=== PATIENT | male | born 1965 | race Caucasian/White ===

== ENCOUNTER 2025-02-11 19:48 | Emergency (ER) | payer MEDICAID ==
[~2025-02-11] VITALS: Ht 172.7 cm; Wt 78.0 kg
[2025-02-11 19:59] VITALS: O2SAT 99
[2025-02-11] MEDS: NITROGLYCERIN 0.4MG TABLET SL SL PRN (23:02)
[2025-02-11] MEDS: ASPIRIN 81MG TABLET PO ONE (23:02)
[2025-02-11 23:04] LABS: EOSINOPHILS % 2.2 % (0.0-5.0); HEMATOCRIT. 39.3 % (42.0-52.0); HEMOGLOBIN. 13.2 g/dL (14.0-18.0); MEAN CORPUSCULAR HEMOGLOBIN 32.6 pg (28.0-32.0); MEAN CORPUSCULAR HGB CONC 33.6 g/dL (31.0-37.0); MEAN CORPUSCULAR VOLUME 97.1 fL (80.0-94.0); MEAN PLATELET VOLUME 7.7 fl (7.4-10.4); MONOCYTES % 8.9 % (2.0-8.0); NEUTROPHILS % 64.9 % (40.0-76.0); PLATELET 260 x1000/uL (130-400); RED BLOOD CELL COUNT 4.05 mill/uL (4.7-6.1); RED CELL DISTRIBUTION WIDTH 15.2 % (11.6-14.6); WHITE BLOOD COUNT 13.4 x1000/uL (4.5-11.0)
[2025-02-11 23:15] LABS: CARBON DIOXIDE 27 mEq/L (21-32); CHLORIDE 111 mEq/L (98-107); D-DIMER < 0.19 mg/L FEU (<0.50); INR 1.1; PARTIAL THROMBOPLASTIN TIME 30.5 sec (23.4-31.0); POTASSIUM 3.7 mEq/L (3.5-5.1); PROTHROMBIN TIME 11.3 sec (9.6-11.0); SODIUM 144 mEq/L (136-145)
[2025-02-11 23:16] LABS: CALCIUM 9.3 mg/dL (8.7-10.4)
[2025-02-11 23:20] LABS: CREATININE 0.8 mg/dL (0.6-1.3)
[2025-02-11 23:21] LABS: ETHANOL BLOOD < 10 mg/dL (<10); GLUCOSE 124 mg/dL (70-105); UREA NITROGEN BLOOD 21 mg/dL (9-23)
[2025-02-11 23:22] LABS: ALANINE AMINOTRANSFERASE 53 IU/L (10-49); ASPARTATE AMINOTRANSFERASE 127 IU/L (<34)
[2025-02-11 23:23] LABS: ALBUMIN 4.1 g/dL (3.2-4.8); BILIRUBIN DIRECT 0.1 mg/dL (<=3.0); BILIRUBIN TOTAL 0.5 mg/dL (0.1-1.0); PROTEIN TOTAL 7.8 g/dL (6.0-8.3); TROPONIN I HIGH SENSITIVITY 5 ng/L (3.0-53)
[2025-02-12 06:24] VITALS: TEMP 37.2
[2025-02-12 06:31] VITALS: BP 122/68; PULSE 62; RESP 12
== END 2025-02-12 08:04 | disposition left against medical advice (07) ==
LOC: ER 19:48
DX: R06.02 Shortness of breath (principal); R06.09 Other forms of dyspnea; F20.9 Schizophrenia, unspecified; F31.9 Bipolar disorder, unspecified; I10 Essential (primary) hypertension; J44.89 Other specified chronic obstructive pulmonary disease
CPT/HCPCS: 80076; 80048; 80320; 83880; 85025; 85379; 85610; 85730; 84484; 36415; 71045; 93005; 99285; Z7610; G0480

== ENCOUNTER 2025-05-19 17:21 | Emergency (ER) | payer MEDICAID ==
[~2025-05-19] VITALS: Ht 177.8 cm; Wt 80.0 kg
[2025-05-19 17:26] VITALS: BP 130/85; PULSE 92; RESP 16; TEMP 37; O2SAT 98
[2025-05-19] MEDS ORDERED: ACETAMINOPHEN 325MG TABLET PO ONE (18:30)
[2025-05-19] MEDS ORDERED: ACET-3800 MT (18:33)
== END 2025-05-19 19:46 | disposition home or self-care (01) ==
LOC: ER 17:21
DX: M79.671 Pain in right foot (principal); M79.672 Pain in left foot; I10 Essential (primary) hypertension; F20.9 Schizophrenia, unspecified; F41.9 Anxiety disorder, unspecified; F31.9 Bipolar disorder, unspecified; J44.9 Chronic obstructive pulmonary disease, unspecified; Z79.899 Other long term (current) drug therapy
CPT/HCPCS: 99283

== ENCOUNTER 2025-06-30 12:57 | Emergency (ER) | payer MEDICAID ==
[~2025-06-30] VITALS: Ht 172.7 cm; Wt 77.0 kg
[~2025-06-30 12:57] MED LIST: ACET-3800 MT
[2025-06-30 13:03] VITALS: BP 122/65; PULSE 79; RESP 18; TEMP 36.9; O2SAT 98
[2025-06-30 15:02] LABS: BASOPHILS % 0.3 % (0.0-2.0); EOSINOPHILS % 3.0 % (0.0-5.0); HEMATOCRIT. 39.1 % (42.0-52.0); HEMOGLOBIN. 12.8 g/dL (14.0-18.0); LYMPHOCYTES % 33.8 % (20.0-50.0); MEAN PLATELET VOLUME 8.2 fl (7.4-10.4); MONOCYTES % 10.0 % (2.0-8.0); NEUTROPHILS % 52.9 % (40.0-76.0); PLATELET 205 x1000/uL (130-400); RED BLOOD CELL COUNT 4.00 mill/uL (4.7-6.1); RED CELL DISTRIBUTION WIDTH 14.8 % (11.6-14.6)
[2025-06-30 15:12] LABS: INR 1.0
[2025-06-30] MEDS: ASPIRIN 81MG TABLET PO ONE (15:16)
[2025-06-30 15:17] LABS: CREATININE 0.7 mg/dL (0.6-1.3); UREA NITROGEN BLOOD 19 mg/dL (9-23)
[2025-06-30 15:19] LABS: TROPONIN I HIGH SENSITIVITY < 4 ng/L (3.0-53)
== END 2025-06-30 16:16 | disposition home or self-care (01) ==
LOC: ER 12:59
DX: F20.9 Schizophrenia, unspecified (principal); I10 Essential (primary) hypertension; F41.9 Anxiety disorder, unspecified; F32.A Depression, unspecified; Z79.899 Other long term (current) drug therapy
CPT/HCPCS: 80048; 85025; 85610; 84484; 36415; 71045; 93005; 99285; Z7610

== ENCOUNTER 2025-07-04 10:55 | Emergency (ER) | payer MEDICAID ==
[~2025-07-04] VITALS: Ht 180.3 cm; Wt 77.0 kg
[2025-07-04 10:58] VITALS: BP 124/76; PULSE 95; RESP 18; TEMP 36.9; O2SAT 99
[2025-07-04] MEDS ORDERED: ACETAMINOPHEN 325MG TABLET PO ONE (11:30)
== END 2025-07-04 12:57 | disposition home or self-care (01) ==
LOC: ER 10:55
DX: M25.561 Pain in right knee (principal); I10 Essential (primary) hypertension; F41.9 Anxiety disorder, unspecified; F32.A Depression, unspecified; F20.9 Schizophrenia, unspecified; Z79.899 Other long term (current) drug therapy
CPT/HCPCS: 99283

== ENCOUNTER 2025-07-12 11:57 | Emergency (ER) | payer MEDICAID ==
[~2025-07-12] VITALS: Ht 185.4 cm; Wt 82.0 kg
[2025-07-12 12:00] VITALS: BP 121/81; PULSE 88; RESP 16; TEMP 36.9; O2SAT 99
== END 2025-07-12 16:44 | disposition left against medical advice (07) ==
LOC: ER 11:57
DX: R53.1 Weakness (principal); M79.10 Myalgia, unspecified site
CPT/HCPCS: 99281